=== PATIENT | male | born 1990 | race African-American/Black ===

== ENCOUNTER 2017-01-30 05:57 | Emergency (ER) | payer MEDICAID ==
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
[2017-01-30 10:09] LABS: PROTHROMBIN TIME 12.9 SEC (11.4-15.4)
[2017-01-30 10:11] LABS: APPEARANCE,URINE SLIGHTLY-CLOUDY; BILIRUBIN,URINE NEGATIVE (NEGATIVE); GLUCOSE, URINE NEGATIVE (NEGATIVE); KETONES,URINE TRACE mg/dL (NEGATIVE); LEUKOCYTE ESTERASE,URINE NEGATIVE (NEGATIVE); NITRITE,URINE NEGATIVE (NEGATIVE); PROTEIN,URINE NEGATIVE (NEGATIVE); URINE SPECIFIC GRAVITY 1.029
[2017-01-30 10:13] LABS: ABSOLUTE EOSINOPHILS # (AUTO) 0.1 10^3/uL (0.0-0.6); ABSOLUTE MONOCYTES (AUTO) 0.5 10^3/uL (0.1-1.4); BASOPHILS % (AUTO) 0.5 % (0-2); EOSINOPHILS % (AUTO) 1.3 % (0-6); HEMATOCRIT 43.6 % (37.9-51.0); HEMOGLOBIN 14.8 g/dL (13.5-17.0); HGB HCT DIFFERENCE 0.8; LYMPHOCYTES % (AUTO) 43.5 % (13-45); MEAN CORPUSCULAR HEMOGLOBIN 31.1 pg (27.0-33.4); MEAN CORPUSCULAR HGB CONC 33.9 g/dL (32.0-36.0); MEAN CORPUSCULAR VOLUME 92 fl (80-97); MONOCYTES % (AUTO) 10.3 % (3-13); RED BLOOD COUNT 4.75 10^6/uL (4.35-5.55); RED CELL DISTRIBUTION WIDTH 13.7 % (11.5-14.0); SEGMENTED NEUTROPHILS % (AUTO) 44.4 % (42-78); WHITE BLOOD COUNT 4.6 10^3/uL (4.0-10.5)
[2017-01-30 10:19] LABS: ALANINE AMINOTRANSFERASE 32 U/L (21-72); ALKALINE PHOSPHATASE 90 U/L (38-126); ANION GAP 15 (5-19); ASPARTATE AMINO TRANSFERASE 23 U/L (17-59); BILIRUBIN,DIRECT 0.2 mg/dL (0.0-0.4); BILIRUBIN,TOTAL 0.7 mg/dL (0.2-1.3); BLOOD UREA NITROGEN 12 mg/dL (7-20); CALCIUM 10.3 mg/dL (8.4-10.2); CARBON DIOXIDE 28 mmol/L (22-30); CHLORIDE 101 mmol/L (98-107); GLUCOSE 79 mg/dL (75-110); POTASSIUM 5.4 mmol/L (3.6-5.0); SODIUM 144.3 mmol/L (137-145); TOTAL PROTEIN 7.7 g/dL (6.3-8.2)
[2017-01-30 12:53] VITALS: BP 111/75
== END 2017-01-30 12:53 | disposition home or self-care (01) ==
LOC: ER 05:57
DX: K62.5 Hemorrhage of anus and rectum (principal); R10.31 Right lower quadrant pain; F17.210 Nicotine dependence, cigarettes, uncomplicated
CPT/HCPCS: 36415; 80053; 81001; 82272; 85025; 85610; 99283

== ENCOUNTER 2017-04-26 20:25 | Emergency (ER) | payer MEDICAID ==
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
[2017-04-26 21:20] LABS: ABSOLUTE LYMPHOCYTES (AUTO) 1.2 10^3/uL (0.5-4.7); ABSOLUTE MONOCYTES (AUTO) 0.4 10^3/uL (0.1-1.4); ABSOLUTE NEUT (AUTO) 1.7 10^3/uL (1.7-8.2); BASOPHILS % (AUTO) 0.6 % (0-2); EOSINOPHILS % (AUTO) 1.2 % (0-6); HEMATOCRIT 35.4 % (37.9-51.0); HEMOGLOBIN 11.8 g/dL (13.5-17.0); LYMPHOCYTES % (AUTO) 35.3 % (13-45); MEAN CORPUSCULAR HEMOGLOBIN 31.3 pg (27.0-33.4); MEAN CORPUSCULAR HGB CONC 33.4 g/dL (32.0-36.0); MEAN CORPUSCULAR VOLUME 94 fl (80-97); RED BLOOD COUNT 3.78 10^6/uL (4.35-5.55); RED CELL DISTRIBUTION WIDTH 14.2 % (11.5-14.0); SEGMENTED NEUTROPHILS % (AUTO) 50.9 % (42-78); WHITE BLOOD COUNT 3.4 10^3/uL (4.0-10.5)
[2017-04-26] MEDS ORDERED: ACTIVATED CHARCOAL 25 GM BOTTLE PO ONE (21:30)
[2017-04-26 21:34] LABS: ALANINE AMINOTRANSFERASE 22 U/L (21-72); ALBUMIN 4.6 g/dL (3.5-5.0); ALKALINE PHOSPHATASE 66 U/L (38-126); ANION GAP 10 (5-19); ASPARTATE AMINO TRANSFERASE 16 U/L (17-59); BILIRUBIN,DIRECT 0.3 mg/dL (0.0-0.4); BILIRUBIN,TOTAL 0.5 mg/dL (0.2-1.3); BLOOD UREA NITROGEN 11 mg/dL (7-20); CALCIUM 9.6 mg/dL (8.4-10.2); CARBON DIOXIDE 30 mmol/L (22-30); CHLORIDE 103 mmol/L (98-107); CREATININE RESULT 0.96 mg/dL (0.52-1.25); GLUCOSE 96 mg/dL (75-110); POTASSIUM 3.4 mmol/L (3.6-5.0); TOTAL PROTEIN 7.5 g/dL (6.3-8.2)
[2017-04-26 21:35] LABS: ALCOHOL < 10 mg/dL (NONE DETECTED)
[2017-04-26 21:37] LABS: APPEARANCE,URINE CLEAR; BILIRUBIN,URINE NEGATIVE (NEGATIVE); GLUCOSE, URINE NEGATIVE (NEGATIVE); KETONES,URINE NEGATIVE (NEGATIVE); LEUKOCYTE ESTERASE,URINE NEGATIVE (NEGATIVE); NITRITE,URINE NEGATIVE (NEGATIVE); PROTEIN,URINE NEGATIVE (NEGATIVE); URINE SPECIFIC GRAVITY 1.001; UROBILINOGEN,URINE NEGATIVE mg/dL (<2.0)
[2017-04-26 21:53] LABS: URINE BARBITURATES SCREEN NEGATIVE; URINE METHADONE SCREEN NEGATIVE; URINE OPIATES LOW NEGATIVE; URINE PHENCYCLIDINE SCREEN NEGATIVE
--- NOTE | 2017-04-26 22:44 | EKG REPORT ---
SEVERITY:- ABNORMAL ECG - SINUS ARRHYTHMIA, RATE 58-85 FIRST DEG[address] AV BLOCK : Confirmed by: Tracy Coley 26-Apr-2017 22:43:58
[2017-04-27 13:46] VITALS: BP 114/63
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
== END 2017-04-27 16:30 | disposition home or self-care (01) ==
LOC: ER 20:25
DX: R45.851 Suicidal ideations (principal); F20.9 Schizophrenia, unspecified; F32.9 Major depressive disorder, single episode, unspecified; Z88.0 Allergy status to penicillin
CPT/HCPCS: 93005; 99284; 36415; 80307 ×4; 85025; 80053; 81001; 93010; J3490

== ENCOUNTER 2017-04-27 19:43 | Emergency (ER) | payer MEDICAID ==
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
[2017-04-28 06:38] VITALS: BP 128/64
--- NOTE | 2017-04-28 09:28 | PSYCHOLOGICAL NOTE ---
Psych Note - Psych Note Psych Note: 26-year-old male, schizophrenic, here for suicidal ideation. Patient resting comfortably in his bed this morning. He is pleasant and conversant. Heart and lung exam are unremarkable. Skin is warm and dry. Patient has no complaints and is currently awaiting disposition.
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
== END 2017-04-28 13:40 | disposition home or self-care (01) ==
LOC: ER 19:43
DX: R45.851 Suicidal ideations (principal); F20.9 Schizophrenia, unspecified; Z88.0 Allergy status to penicillin
CPT/HCPCS: 99285

== ENCOUNTER 2017-04-28 22:17 | Emergency (ER) | payer OTHER, MEDICAID ==
[2017-04-28 23:26] LABS: ALANINE AMINOTRANSFERASE 27 U/L (21-72); ALBUMIN 5.2 g/dL (3.5-5.0); ALKALINE PHOSPHATASE 70 U/L (38-126); ANION GAP 12 (5-19); ASPARTATE AMINO TRANSFERASE 18 U/L (17-59); BILIRUBIN,DIRECT 0.3 mg/dL (0.0-0.4); BILIRUBIN,TOTAL 0.7 mg/dL (0.2-1.3); BLOOD UREA NITROGEN 7 mg/dL (7-20); CARBON DIOXIDE 28 mmol/L (22-30); CHLORIDE 101 mmol/L (98-107); CREATININE RESULT 0.94 mg/dL (0.52-1.25); GLUCOSE 85 mg/dL (75-110); SODIUM 141.3 mmol/L (137-145); TOTAL PROTEIN 8.3 g/dL (6.3-8.2)
[2017-04-28 23:27] LABS: ALCOHOL < 10 mg/dL (NONE DETECTED)
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
[2017-04-29] LABS: ABSOLUTE LYMPHOCYTES (AUTO) 2.1 10^3/uL (0.5-4.7); ABSOLUTE MONOCYTES (AUTO) 0.6 10^3/uL (0.1-1.4); ABSOLUTE NEUT (AUTO) 2.6 10^3/uL (1.7-8.2); BASOPHILS % (AUTO) 0.4 % (0-2); EOSINOPHILS % (AUTO) 0.8 % (0-6); HGB HCT DIFFERENCE -0.7; LYMPHOCYTES % (AUTO) 39.3 % (13-45); MEAN CORPUSCULAR HEMOGLOBIN 31.1 pg (27.0-33.4); MEAN CORPUSCULAR HGB CONC 32.8 g/dL (32.0-36.0); MEAN CORPUSCULAR VOLUME 95 fl (80-97); MONOCYTES % (AUTO) 10.6 % (3-13); RED BLOOD COUNT 5.49 10^6/uL (4.35-5.55); RED CELL DISTRIBUTION WIDTH 13.9 % (11.5-14.0); SEGMENTED NEUTROPHILS % (AUTO) 48.9 % (42-78); WHITE BLOOD COUNT 5.3 10^3/uL (4.0-10.5)
[2017-04-29 00:02] LABS: HEMOGLOBIN 17.1 g/dL (13.5-17.0)
[2017-04-29 00:32] LABS: APPEARANCE,URINE CLEAR; BILIRUBIN,URINE NEGATIVE (NEGATIVE); GLUCOSE, URINE NEGATIVE (NEGATIVE); KETONES,URINE NEGATIVE (NEGATIVE); LEUKOCYTE ESTERASE,URINE NEGATIVE (NEGATIVE); NITRITE,URINE NEGATIVE (NEGATIVE); PROTEIN,URINE NEGATIVE (NEGATIVE); URINE SPECIFIC GRAVITY 1.004; UROBILINOGEN,URINE NEGATIVE mg/dL (<2.0)
[2017-04-29 00:45] LABS: URINE BARBITURATES SCREEN NEGATIVE; URINE METHADONE SCREEN NEGATIVE; URINE OPIATES LOW NEGATIVE; URINE PHENCYCLIDINE SCREEN NEGATIVE
--- NOTE | 2017-04-29 09:21 | ER Document Report ---
Doctor's Note Notes: 04/29/17 09:12 Patient was reassessed at 9 AM. Patient states that he is upset with the way that he is being treated. However patient denies any medical concerns at this time. He is currently awaiting further psychiatric evaluation and disposition.
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
[2017-04-29 12:57] VITALS: BP 112/69
--- NOTE | 2017-04-29 13:15 | ER Document Report ---
Doctor's Note Notes: 04/29/17 13:13 Patient reassessed by me at 1 PM. Patient states she is ready to leave. Patient states he never wanted to come to the hospital. He states he is not going to harm himself and does not have any thoughts of harming himself. Patient denies wanting to harm anyone else. There is obviously no psychosis. I had a extensive discussion with Dr. West who feels that the patient is safe for discharge. Patient states he has a safe place to go and that follow- up is in place. At this time I find no evidence the patient is a threat to himself or others and patient is asking to leave. I find no grounds to hold patient against his will.
--- NOTE | 2017-04-30 05:58 | EKG REPORT ---
SEVERITY:- ABNORMAL ECG - SINUS RHYTHM PROBABLE LEFT VENTRICULAR HYPERTROPHY ST ELEV, PROBABLE NORMAL EARLY REPOL PATTERN : Confirmed by: Ebony Singh MD 30-Apr-2017 05:57:34
== END 2017-04-29 13:30 | disposition home or self-care (01) ==
LOC: ER 22:17
DX: F60.2 Antisocial personality disorder (principal); F32.9 Major depressive disorder, single episode, unspecified; F29 Unspecified psychosis not due to a substance or known physiological condition; F17.200 Nicotine dependence, unspecified, uncomplicated
CPT/HCPCS: 36415; 80053; 80307; 81001; 85025; 93005; 93010; 99284

== ENCOUNTER 2017-05-20 03:41 | Inpatient (IN) | payer MEDICAID, OTHER ==
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
[2017-05-20 04:27] LABS: ABSOLUTE LYMPHOCYTES (AUTO) 1.5 10^3/uL (0.5-4.7); ABSOLUTE MONOCYTES (AUTO) 0.3 10^3/uL (0.1-1.4); ABSOLUTE NEUT (AUTO) 1.9 10^3/uL (1.7-8.2); BASOPHILS % (AUTO) 0.8 % (0-2); EOSINOPHILS % (AUTO) 0.9 % (0-6); HEMATOCRIT 43.3 % (37.9-51.0); HEMOGLOBIN 15.1 g/dL (13.5-17.0); LYMPHOCYTES % (AUTO) 40.8 % (13-45); MEAN CORPUSCULAR HEMOGLOBIN 32.5 pg (27.0-33.4); MEAN CORPUSCULAR VOLUME 93 fl (80-97); MONOCYTES % (AUTO) 8.3 % (3-13); RED BLOOD COUNT 4.66 10^6/uL (4.35-5.55); SEGMENTED NEUTROPHILS % (AUTO) 49.2 % (42-78); WHITE BLOOD COUNT 3.8 10^3/uL (4.0-10.5)
[2017-05-20 04:40] LABS: APPEARANCE,URINE CLOUDY; BILIRUBIN,URINE NEGATIVE (NEGATIVE); GLUCOSE, URINE NEGATIVE (NEGATIVE); KETONES,URINE NEGATIVE (NEGATIVE); LEUKOCYTE ESTERASE,URINE NEGATIVE (NEGATIVE); NITRITE,URINE NEGATIVE (NEGATIVE); PROTEIN,URINE 100 mg/dL (NEGATIVE)
[2017-05-20 04:46] LABS: ALANINE AMINOTRANSFERASE 26 U/L (21-72); ALBUMIN 4.7 g/dL (3.5-5.0); ALKALINE PHOSPHATASE 83 U/L (38-126); ANION GAP 12 (5-19); ASPARTATE AMINO TRANSFERASE 19 U/L (17-59); BILIRUBIN,DIRECT 0.3 mg/dL (0.0-0.4); BILIRUBIN,TOTAL 0.6 mg/dL (0.2-1.3); BLOOD UREA NITROGEN 11 mg/dL (7-20); CALCIUM 9.5 mg/dL (8.4-10.2); CARBON DIOXIDE 27 mmol/L (22-30); CHLORIDE 103 mmol/L (98-107); CREATININE RESULT 0.95 mg/dL (0.52-1.25); GLUCOSE 107 mg/dL (75-110); MAGNESIUM 2.1 mg/dL (1.6-2.3); POTASSIUM 4.1 mmol/L (3.6-5.0); SODIUM 141.7 mmol/L (137-145); TOTAL PROTEIN 7.7 g/dL (6.3-8.2)
[2017-05-20 04:51] LABS: ALCOHOL < 10 mg/dL (NONE DETECTED); URINE BARBITURATES SCREEN NEGATIVE; URINE METHADONE SCREEN NEGATIVE; URINE OPIATES LOW NEGATIVE; URINE PHENCYCLIDINE SCREEN NEGATIVE
[2017-05-20] MEDS ORDERED: ACETYLCYSTEINE INJ 6000 MG/30 ML IV ONE ×3 (07:12→07:15)
[2017-05-20] MEDS ORDERED: MAGNESIUM HYDROXIDE SUSP 30 ML UDCUP PO PRN (08:07)
[2017-05-20] MEDS ORDERED: ONDANSETRON HCL INJ/PF 4 MG/2 ML SDV IV PRN (08:07)
[2017-05-20] MEDS ORDERED: NORMAL SALINE 1000 ML 1,000 ML IV ONE (08:12)
[2017-05-20] MEDS ORDERED: ACETYLCYSTEINE IV PRN ×6 (08:13→10:00)
[2017-05-20] MEDS ORDERED: DEXTROSE 5% IV PRN ×6 (08:13→10:00)
[2017-05-20] MEDS ORDERED: WATER IV PRN ×6 (08:13→10:00)
[2017-05-20] MEDS: NORMAL SALINE 1000 ML 1,000 ML IV PRN ×4 (08:31→20:04)
[2017-05-20] MEDS ORDERED: PANTOPRAZOLE SODIUM 40 MG VIAL IV SCH (10:00)
--- NOTE | 2017-05-20 13:09 | EKG REPORT ---
SEVERITY:- ABNORMAL ECG - SINUS RHYTHM PROBABLE LEFT VENTRICULAR HYPERTROPHY ST ELEV, PROBABLE NORMAL EARLY REPOL PATTERN : Confirmed by: Tracy Coley 20-May-2017 13:09:14
--- NOTE | 2017-05-20 16:01 | PDOC H&P ---
History of Present Illness Admission Date/PCP: 05/20/17 08:01 no PCP Patient complains of: I tried to kill myself History of Present Illness: RAVI MONTES DE OCA is a 26 year old male presents to the ED after intentional ingestion of tylenol and benadryl in an effort to kill himself. He tells me he is tired of living and just wants to cross over to the other side. I asked him what he expected to find there and he said he didn't care, it had to be better than this. He has been seen in the ED multiple times since 2012 for suicide ideations, diagnosed with schizophrenia and is supposed to f/u with psych as an outpatient. He has been committed under IVC in the past. He reports taking 25 500mg tylenol and 50 25mg benadryl and proceeds to present to the ED for reasons that aren't clear to me if his real intent was to kill himself or to seek attention. Nevertheless it appears he did indeed ingest enough tylenol for his level to start rising thereby warranting admission to the hospital for acetadote treatment prior to psych eval and likely placement. Past Medical History Psychiatric Medical History: Reports: Bipolar Disorder, Depression, Other - schizophrenia Past Surgical History Past Surgical History: Reports: Orthopedic Surgery Social History Information Source: Patient Smoking Status: Current Every Day Smoker Frequency of Alcohol Use: Social Hx Recreational Drug Use: Yes Drugs: Cocaine, Marijuana - Advance Directive Resuscitation Status: Full Code Family History Family History: Reviewed & Not Pertinent, DM Parental Family History Reviewed: Yes Children Family History Reviewed: Yes Sibling(s) Family History Reviewed.: Yes Medication/Allergy Home Medications: No Home Medications 04/29/17 Allergies/Adverse Reactions: Penicillins Allergy (Verified 04/27/17 20:04) shellfish derived Allergy (Verified 05/20/17 03:44) Review of Systems All systems: reviewed and no additional remarkable complaints except as stated - all systems reviewed, see HPI, remaining systems negative Physical Exam Vital Signs: Temp Pulse Resp BP Pulse Ox 98.5 F 61 19 106/92 H 100 05/20/17 14:00 05/20/17 14:00 05/20/17 15:00 05/20/17 14:35 05/20/17 15:00 Intake & Output 05/19/17 05/20/17 05/21/17 06:59 06:59 06:59 Intake Total 200 Balance 200 Weight 57.7 kg General appearance: PRESENT: well-developed, well-nourished, other - unwilling to participate in his exam so severely limited Head exam: PRESENT: atraumatic, normocephalic Eye exam: PRESENT: EOMI. ABSENT: conjunctival injection, scleral icterus Mouth exam: PRESENT: moist Respiratory exam: PRESENT: clear to auscultation claude. ABSENT: accessory muscle use Cardiovascular exam: PRESENT: RRR. ABSENT: systolic murmur GI/Abdominal exam: PRESENT: normal bowel sounds, soft Musculoskeletal exam: PRESENT: full ROM Neurological exam: PRESENT: alert, awake Psychiatric exam: PRESENT: flat affect, suicidal ideation Skin exam: PRESENT: dry, warm Results Laboratory Results: 05/20/17 03:55 05/20/17 03:55 MCV 93 fl (80-97) 05/20/17 03:55 MCH 32.5 pg (27.0-33.4) 05/20/17 03:55 MCHC 35.0 g/dL (32.0-36.0) 05/20/17 03:55 RDW 14.0 % (11.5-14.0) 05/20/17 03:55 Seg Neutrophils % 49.2 % (42-78) 05/20/17 03:55 Lymphocytes % 40.8 % (13-45) 05/20/17 03:55 Monocytes % 8.3 % (3-13) 05/20/17 03:55 Eosinophils % 0.9 % (0-6) 05/20/17 03:55 Basophils % 0.8 % (0-2) 05/20/17 03:55 Absolute Neutrophils 1.9 10^3/uL (1.7-8.2) 05/20/17 03:55 Absolute Lymphocytes 1.5 10^3/uL (0.5-4.7) 05/20/17 03:55 Absolute Monocytes 0.3 10^3/uL (0.1-1.4) 05/20/17 03:55 Absolute Eosinophils 0.0 10^3/uL (0.0-0.6) 05/20/17 03:55 Absolute Basophils 0.0 10^3/uL (0.0-0.2) 05/20/17 03:55 Chloride 103 mmol/L (98-107) 05/20/17 03:55 Carbon Dioxide 27 mmol/L (22-30) 05/20/17 03:55 Anion Gap 12 (5-19) 05/20/17 03:55 Est GFR ( Amer) > 60 (>60) 05/20/17 03:55 Est GFR (Non-Af Amer) > 60 (>60) 05/20/17 03:55 Glucose 107 mg/dL (75-110) 05/20/17 03:55 Calcium 9.5 mg/dL (8.4-10.2) 05/20/17 03:55 Magnesium 2.1 mg/dL (1.6-2.3) 05/20/17 03:55 Total Bilirubin 0.6 mg/dL (0.2-1.3) 05/20/17 03:55 AST 19 U/L (17-59) 05/20/17 03:55 ALT 26 U/L (21-72) 05/20/17 03:55 Alkaline Phosphatase 83 U/L (38-126) 05/20/17 03:55 Total Protein 7.7 g/dL (6.3-8.2) 05/20/17 03:55 Albumin 4.7 g/dL (3.5-5.0) 05/20/17 03:55 Urine Color KALIE 05/20/17 03:55 Urine Appearance CLOUDY 05/20/17 03:55 Urine pH 9.0 (5.0-9.0) 05/20/17 03:55 Ur Specific [place] 1.030 05/20/17 03:55 Urine Protein 100 mg/dL (NEGATIVE) H 05/20/17 03:55 Urine Glucose (UA) NEGATIVE mg/dL (NEGATIVE) 05/20/17 03:55 Urine Ketones NEGATIVE mg/dL (NEGATIVE) 05/20/17 03:55 Urine Blood NEGATIVE (NEGATIVE) 05/20/17 03:55 Urine Nitrite NEGATIVE (NEGATIVE) 05/20/17 03:55 Ur Leukocyte Esterase NEGATIVE (NEGATIVE) 05/20/17 03:55 Urine WBC (Auto) 0 /HPF 05/20/17 03:55 Urine RBC (Auto) 0 /HPF 05/20/17 03:55 Assessment & Plan - Diagnosis (1) Tylenol overdose Qualifiers: Encounter type: initial encounter Injury intent: intentional self-harm Qualified Code(s): T39.1X2A - Poisoning by 4-Aminophenol derivatives, intentional self-harm, initial encounter Is this a current diagnosis for this admission?: YesPlan: admit to ICU for acetadote IV for 20 hours, re-eval coags, ALT and tylenol level at 18hrs to decide on further treatment. (2) Schizophrenia Qualifiers: Schizophrenia type: undifferentiated schizophrenia Qualified Code(s) : F20.3 - Undifferentiated schizophrenia Is this a current diagnosis for this admission?: YesPlan: antispsychotics prn; await mental health evaluation (3) Suicidal ideation Is this a current diagnosis for this admission?: YesPlan: suicide precautions, mental health eval - Time Time Spent: 50 to 70 Minutes Medications reviewed and adjusted accordingly: Yes - Inpatient Certification Based on my medical assessment, after consideration of the patient's comorbidities, presenting symptoms, or acuity I expect that the services needed warrant INPATIENT care.: Yes I certify that my determination is in accordance with my understanding of Medicare's requirements for reasonable and necessary INPATIENT services [42 CFR 412.3e].: Yes Medical Necessity: Significant Comorbidiites Make Outpatient Treatment Too Risky , Need For IV Fluids, Need For Continuous Telemetry Monitoring, Risk of Complication if Not Cared For in Hospital - Plan Summary Plan Summary: continue IVC awaiting tereza ascencio exam and placment
[2017-05-21] MEDS: NORMAL SALINE 1000 ML 1,000 ML IV PRN ×2 (01:05→06:04)
[2017-05-21 04:04] LABS: ABSOLUTE LYMPHOCYTES (AUTO) 1.5 10^3/uL (0.5-4.7); ABSOLUTE MONOCYTES (AUTO) 0.4 10^3/uL (0.1-1.4); ABSOLUTE NEUT (AUTO) 1.3 10^3/uL (1.7-8.2); BASOPHILS % (AUTO) 0.6 % (0-2); EOSINOPHILS % (AUTO) 0.8 % (0-6); HEMATOCRIT 38.8 % (37.9-51.0); HEMOGLOBIN 13.2 g/dL (13.5-17.0); HGB HCT DIFFERENCE 0.8; LYMPHOCYTES % (AUTO) 46.9 % (13-45); MEAN CORPUSCULAR HEMOGLOBIN 32.1 pg (27.0-33.4); MEAN CORPUSCULAR HGB CONC 34.1 g/dL (32.0-36.0); MEAN CORPUSCULAR VOLUME 94 fl (80-97); MONOCYTES % (AUTO) 11.7 % (3-13); RED BLOOD COUNT 4.11 10^6/uL (4.35-5.55); RED CELL DISTRIBUTION WIDTH 13.5 % (11.5-14.0); WHITE BLOOD COUNT 3.3 10^3/uL (4.0-10.5)
[2017-05-21 04:20] LABS: ALANINE AMINOTRANSFERASE 19 U/L (21-72); ALBUMIN 3.3 g/dL (3.5-5.0); ALKALINE PHOSPHATASE 53 U/L (38-126); ANION GAP 8 (5-19); ASPARTATE AMINO TRANSFERASE 12 U/L (17-59); BILIRUBIN,DIRECT 0.3 mg/dL (0.0-0.4); BILIRUBIN,TOTAL 0.5 mg/dL (0.2-1.3); BLOOD UREA NITROGEN 6 mg/dL (7-20); CALCIUM 8.5 mg/dL (8.4-10.2); CARBON DIOXIDE 23 mmol/L (22-30); CHLORIDE 110 mmol/L (98-107); CREATININE RESULT 0.75 mg/dL (0.52-1.25); GLUCOSE 87 mg/dL (75-110); POTASSIUM 4.1 mmol/L (3.6-5.0); SODIUM 140.9 mmol/L (137-145); TOTAL PROTEIN 5.9 g/dL (6.3-8.2)
--- NOTE | 2017-05-21 08:06 | PDOC PROGRESS REPORT ---
Subjective Progress Note for:: 05/21/17 Subjective:: reason for visit: f/u tylenol OD, suicide ideations/attempt, tylenol toxicity hospital course: RAVI MONTES DE OCA is a 26 year old male presents to the ED after intentional ingestion of tylenol and benadryl in an effort to kill himself. He tells me he is tired of living and just wants to cross over to the other side. I asked him what he expected to find there and he said he didn't care, it had to be better than this. He has been seen in the ED multiple times since 2012 for suicide ideations, diagnosed with schizophrenia and is supposed to f/u with psych as an outpatient. He has been committed under IVC in the past. He reports taking 25 500mg tylenol and 50 25mg benadryl and proceeds to present to the ED for reasons that aren't clear to me if his real intent was to kill himself or to seek attention. Nevertheless it appears he did indeed ingest enough tylenol for his level to start rising thereby warranting admission to the hospital for acetadote treatment prior to psych eval and likely placement. admitted to the ICU on acetadote 20 hr regimen IV which he tolerated without any difficulty. His repeat ALT, tylenol level and INR are all wnl's indicating that it is safe to discontinue in the setting of an acute ingestion and he is medically cleared for mental health evaluation. he expresses no remorse for his actions and makes no effort to recant his story. He remains threat to self. ROS: he denies chest pain, palpitations, abdominal pain, n/v/d, rash, itching, difficulty breathing; all systems reviewed, see above, remaining systems negative. Physical Exam Vital Signs: Temp Pulse Resp BP Pulse Ox 98 F 58 L 16 111/87 H 100 05/21/17 04:00 05/20/17 20:00 05/21/17 07:00 05/21/17 06:50 05/21/17 07:00 Intake & Output 05/20/17 05/21/17 05/22/17 06:59 06:59 06:59 Intake Total 5141 Output Total 3200 850 Balance 1941 -850 Weight 59.8 kg General appearance: PRESENT: no acute distress, well-developed, well-nourished Head exam: PRESENT: atraumatic, normocephalic Eye exam: PRESENT: EOMI. ABSENT: conjunctival injection, scleral icterus Mouth exam: PRESENT: moist, neck supple Neck exam: PRESENT: full ROM. ABSENT: tracheal deviation Respiratory exam: PRESENT: clear to auscultation claude. ABSENT: accessory muscle use Cardiovascular exam: PRESENT: RRR. ABSENT: systolic murmur Pulses: PRESENT: normal radial pulses, normal dorsalis pedis pul GI/Abdominal exam: PRESENT: normal bowel sounds, soft. ABSENT: organolmegaly, tenderness Extremities exam: PRESENT: full ROM. ABSENT: calf tenderness, pedal edema Musculoskeletal exam: PRESENT: ambulatory, full ROM Neurological exam: PRESENT: alert, awake, oriented to person, oriented to place , oriented to time, oriented to situation, CN II-XII grossly intact, motor sensory deficit. ABSENT: aphasic Psychiatric exam: PRESENT: flat affect, suicidal ideation Focused psych exam: ABSENT: pressured speech, psychomotor agitation, restlessness Skin exam: PRESENT: warm - and moist. ABSENT: rash Results Laboratory Results: 05/21/17 03:47 05/21/17 03:47 05/21/17 05/21/17 03:47 03:47 WBC 3.3 L RBC 4.11 L Hgb 13.2 L Hct 38.8 MCV 94 MCH 32.1 MCHC 34.1 RDW 13.5 Plt Count 131 L Seg Neutrophils % 40.0 L Lymphocytes % 46.9 H Monocytes % 11.7 Eosinophils % 0.8 Basophils % 0.6 Absolute Neutrophils 1.3 L Absolute Lymphocytes 1.5 Absolute Monocytes 0.4 Absolute Eosinophils 0.0 Absolute Basophils 0.0 Sodium 140.9 Potassium 4.1 Chloride 110 H Carbon Dioxide 23 Anion Gap 8 BUN 6 L Creatinine 0.75 Est GFR ( Amer) > 60 Est GFR (Non-Af Amer) > 60 Glucose 87 Calcium 8.5 Total Bilirubin 0.5 AST 12 L ALT 19 L Alkaline Phosphatase 53 Total Protein 5.9 L Albumin 3.3 L Assessment & Plan - Diagnosis (1) Tylenol overdose Qualifiers: Encounter type: initial encounter Injury intent: intentional self-harm Qualified Code(s): T39.1X2A - Poisoning by 4-Aminophenol derivatives, intentional self-harm, initial encounter Is this a current diagnosis for this admission?: YesPlan: resolved; no evidence for liver injury and tylenol dose undetectable at 18 hrs after initiation of acetadote. since this is an acute ingestion, he completed the 20hr course of IV regimen and no indication for continued dosing. ok for mental health to evaluate and begin treatment and placement. He remains a risk to self in my estimation, we'll see what the experts have to say. (2) Suicidal ideation Is this a current diagnosis for this admission?: YesPlan: as above; continue suicide watch and involuntary commitment (3) Schizophrenia Qualifiers: Schizophrenia type: undifferentiated schizophrenia Qualified Code(s) : F20.3 - Undifferentiated schizophrenia Is this a current diagnosis for this admission?: YesPlan: antispsychotics prn; await mental health evaluation, not sure what regimen has worked for him in the past - Time Time Spent with patient: 25-34 minutes Medications reviewed and adjusted accordingly: Yes Anticipated discharge: Other - mental health inpatient Within: when bed available
--- NOTE | 2017-05-21 13:30 | PSYCHOLOGICAL NOTE ---
Psych Note - Psych Note Psych Note: Patient is a 26-year-old male who presents with complaint of suicidal ideations. He intentionally overdose on Tylenol Benadryl and Motrin. He says he he took maybe 20 Tylenol. He is really unsure the number. He does not know the dose of Tylenol. He said he took 20-30 Benadryl. He does not know the dose of Benadryl. He said he took 5-10 Motrin. He does not know the dose of Motrin. He will not tell me why he wants to kill himself. He says "I do not want to live". He denies any abdominal pain. Clinician conduct chart review: Initial acetaminophen level came back 0. He initially informed us that he took the Tylenol 2 hours prior to arrival and therefore he should have had some acetaminophen in his bloodstream. I suspected initially that he did not take any. However, his 4 levels under 35. I suspect that the patient probably actually took the acetaminophen right before he got to the ER being that his initial blood work showed no acetaminophen in his bloodstream and that his 4 level is actually more like a 2 hour level. Clinician notes, patient was seen 04/26/2017 for alleged suicide attempt via swallowing bleach and ingesting Tylenol with the intent to :Patient was psychiatrically cleared for discharge. Patient was recommended for rescind IVC and discharged to follow up with [facility]. Patient's lab work did not substantiate patient's reported suicide attempt (negative for Tylenol) and negative symptoms (eg blistered/sore throat). Evaluation 05/20/2017: Patient he was on the phone with mobile crisis when he was "eating the pills." he reported he came to [facility] ED after mobile crisis told him to come in and because his stomach hurt. Patient continued to attempt to engage clinician in philosophical debate on ethical considerations of suicide; "it should be my choice, I want to pass on... there is nothing here for me" Patient was reminded he ambulated into [facility] on his own requesting assistance for taking overdose of Tylenol and Benadryl so patient was choosing life. Patient disclosed he wants to "pass over" with no pain; "I came in because in was in pain, I don't want to be in pain." (Clinician notes patient was talking about his reported abdominal pain.) When clinician stated he will be re-evaluated tomorrow, patient was surprised, "what are you talking about tomorrow?" Patient stated he was unaware he was in ICU and his affect indicated worry. Patient is alert and orientated to person place time and circumstance. Patient endorses suicidal ideation however is unable to provide new information other than what was provided from previous evaluations. Patient denies homicidal ideation. Patient denies auditory and visual hallucinations. Delusions were absent and behaviors are congruent with intact reality based presentation (i.e. organized, linear, rational thinking). Thought content appears to be focused on an unknown with secondary gain supported by the patient 's refusal to provide collateral and patient's inconsistency in reports. Conversational speech is low and very difficult to hear. Eye contact was poor. Intellectual abilities appear to be within average range. Attention and concentration are poor. Insight, judgment, impulse control is fair. Re-evaluation 05/21/2017: Patient disclosed he spoke to the doctor and he thinks he will be able to go home soon. Patient stated he still lives with an "acquaintance." Patient continued to refuse collateral contact. Patient disclosed he "will probably" go back to his "acquaintance" house. Patient was asked why he told the emergency department doctor he had no abdominal pain but told clinician he came into the emergency department because of abdominal pain. Patient stated he was not in pain at first, he came in because he was "sleepy." Clinician asked why patient came in to [facility] ED if he was just sleepy and patient reported "sleepy but not the sleepy type... more sluggish and my head hurt." 311 (F32.9) unspecified depressive disorder polysubstance abuse; Cocaine and THC Impression/Plan: Patient is recommended for rescind of IVC and is considered psychiatrically cleared for discharge. Patient does not meet IVC criteria per [place] GS 122C. Patient is a poor historian and his conflicting reports and behavior indicated no intent for suicide. Patient has had multiple visits to [facility] ED reporting Tylenol overdose, only to have the patient recant and report he was only "thinking about it" when lab work did not substantiate his original allegations. While patient did take Tylenol this event, patient again provided conflicting reports on when he took the Tylenol and what motivated him walk to [facility] ED for treatment. Thought content appears to be focused on an unknown with secondary gain supported by the patient's refusal to provide collateral and patient's inconsistency in reports. Dr. West was consulted on the care and management of this patient.
--- NOTE | 2017-05-21 13:47 | PDOC DISCHARGE SUMMARY ---
General - Admit/Disc Date/PCP Admission Date/Primary Care Provider: 05/20/17 08:01 Discharge Date: 05/21/17 - Discharge Diagnosis (1) Tylenol overdose Is this a current diagnosis for this admission?: YesSummary: s/p 20 hr regimen of acetadote without complication of liver injury (2) Suicidal ideation Is this a current diagnosis for this admission?: YesSummary: seen by mental health and deemed to be acting out, not a threat to self or others and safe for d/c home. apparently he has a hx of similar behaviors with a pattern of acting out, attention seeking. (3) Schizophrenia Is this a current diagnosis for this admission?: YesSummary: refuses referrals and treatment - Additional Information Resuscitation Status: Full Code Discharge Diet: As Tolerated Discharge Activity: Activity As Tolerated Home Medications: No Home Medications 04/29/17 History of Present Illness Patient complains of: I tried to kill myself History of Present Illness: RAVI MONTES DE OCA is a 26 year old male presents to the ED after intentional ingestion of tylenol and benadryl in an effort to kill himself. He tells me he is tired of living and just wants to cross over to the other side. Hospital Course Hospital Course: I asked him what he expected to find there and he said he didn't care, it had to be better than this. He has been seen in the ED multiple times since 2013 for suicide ideations, diagnosed with schizophrenia and is supposed to f/u with psych as an outpatient. He has been committed under IVC in the past. He reports taking 25 500mg tylenol and 50 25mg benadryl and proceeds to present to the ED for reasons that aren't clear to me if his real intent was to kill himself or to seek attention. Nevertheless it appears he did indeed ingest enough tylenol for his level to start rising thereby warranting admission to the hospital for acetadote treatment prior to psych eval and likely placement. admitted to the ICU on acetadote 20 hr regimen IV which he tolerated without any difficulty. His repeat ALT, tylenol level and INR are all wnl's indicating that it is safe to discontinue in the setting of an acute ingestion and he is medically cleared for mental health evaluation. he was evaluated yet again by [facility], with whom he has a long history of non-compliance and repeat episodes of attention seeking behavior with suicide attempts, he will often present to the ED with threats to harm self and if he ingests something it is usually in the parking lot or waiting room where he know he will get immediate attention, medical and otherwise. They do not feel he is a threat to self or others and he is stable to d/c home. I have no medical reason to keep him at this point and so will d/c him home. Physical Exam Vital Signs: Temp Pulse Resp BP Pulse Ox 97.0 F 45 L 14 116/75 100 05/21/17 10:13 05/21/17 10:13 05/21/17 10:13 05/21/17 10:13 05/21/17 10:13 Intake & Output 05/20/17 05/21/17 05/22/17 06:59 06:59 06:59 Intake Total 5141 Output Total 3200 850 Balance 1941 -850 Weight 59.8 kg 57.4 kg General appearance: PRESENT: no acute distress, well-developed, well-nourished Head exam: PRESENT: atraumatic, normocephalic Eye exam: PRESENT: EOMI. ABSENT: scleral icterus Respiratory exam: PRESENT: clear to auscultation claude. ABSENT: accessory muscle use Neurological exam: PRESENT: alert, awake, oriented to person, oriented to place , oriented to time Results Laboratory Results: 05/21/17 03:47 05/21/17 03:47 05/21/17 05/21/17 03:47 03:47 WBC 3.3 L RBC 4.11 L Hgb 13.2 L Hct 38.8 MCV 94 MCH 32.1 MCHC 34.1 RDW 13.5 Plt Count 131 L Seg Neutrophils % 40.0 L Lymphocytes % 46.9 H Monocytes % 11.7 Eosinophils % 0.8 Basophils % 0.6 Absolute Neutrophils 1.3 L Absolute Lymphocytes 1.5 Absolute Monocytes 0.4 Absolute Eosinophils 0.0 Absolute Basophils 0.0 Sodium 140.9 Potassium 4.1 Chloride 110 H Carbon Dioxide 23 Anion Gap 8 BUN 6 L Creatinine 0.75 Est GFR ( Amer) > 60 Est GFR (Non-Af Amer) > 60 Glucose 87 Calcium 8.5 Total Bilirubin 0.5 AST 12 L ALT 19 L Alkaline Phosphatase 53 Total Protein 5.9 L Albumin 3.3 L Qualifiers PATEINT BEING DISCHARGED WITH ANY OF THE FOLLOWING DIAGNOSIS?: No VTE patient discharged on overlapping Therapy?: No Reason(s) for not prescribing Overlap Therapy:: Not indicated Plan Discharge Plan: d/c home Time Spent: Greater than 30 Minutes
[2017-05-21 14:44] VITALS: BP 124/71
== END 2017-05-21 16:00 | disposition home or self-care (01) | DRG 918 ==
LOC: ER 03:41 → EH 07:45 → UNDOADMIN 07:45 → EH 08:01 → ICU 10:43 → 4S 05-21 10:04
PROVIDERS: ADMIT Family Medicine; ATTEND Family Medicine
DX: T39.1X2A Poisoning by 4-Aminophenol derivatives, intentional self-harm, initial encounter (principal); Z65.8 Other specified problems related to psychosocial circumstances; T45.0X2A Poisoning by antiallergic and antiemetic drugs, intentional self-harm, initial encounter; Y92.009 Unspecified place in unspecified non-institutional (private) residence as the place of occurrence of the external cause; F20.3 Undifferentiated schizophrenia; F31.9 Bipolar disorder, unspecified; F17.210 Nicotine dependence, cigarettes, uncomplicated; Z91.19 Patient's noncompliance with other medical treatment and regimen; Z91.5 Personal history of self-harm; Z83.3 Family history of diabetes mellitus; Z88.0 Allergy status to penicillin; Z91.013 Allergy to seafood
CPT/HCPCS: 36415; 80053; 80307; 81001; 82962; 83735; 85025; 85610; 93005; 93010; 96360; 99291; J0132; J7030; J7060; S0164

== ENCOUNTER 2017-07-09 03:48 | Emergency (ER) | payer MEDICAID ==
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
[2017-07-09 05:34] LABS: ALANINE AMINOTRANSFERASE 36 U/L (21-72); ALBUMIN 3.7 g/dL (3.5-5.0); ALKALINE PHOSPHATASE 81 U/L (38-126); ANION GAP 7 (5-19); ASPARTATE AMINO TRANSFERASE 88 U/L (17-59); BILIRUBIN,DIRECT 0.3 mg/dL (0.0-0.4); BILIRUBIN,TOTAL 0.3 mg/dL (0.2-1.3); BLOOD UREA NITROGEN 9 mg/dL (7-20); CALCIUM 9.3 mg/dL (8.4-10.2); CARBON DIOXIDE 29 mmol/L (22-30); CHLORIDE 105 mmol/L (98-107); CREATININE RESULT 0.88 mg/dL (0.52-1.25); GLUCOSE 114 mg/dL (75-110); POTASSIUM 3.7 mmol/L (3.6-5.0); SODIUM 141.3 mmol/L (137-145); TOTAL PROTEIN 6.1 g/dL (6.3-8.2)
[2017-07-09 05:36] LABS: ALCOHOL < 10 mg/dL (NONE DETECTED)
[2017-07-09 05:57] LABS: ABSOLUTE EOSINOPHILS # (AUTO) 0.1 10^3/uL (0.0-0.6); ABSOLUTE LYMPHOCYTES (AUTO) 1.9 10^3/uL (0.5-4.7); ABSOLUTE MONOCYTES (AUTO) 0.4 10^3/uL (0.1-1.4); BASOPHILS % (AUTO) 0.6 % (0-2); EOSINOPHILS % (AUTO) 1.6 % (0-6); HEMATOCRIT 38.2 % (37.9-51.0); HEMOGLOBIN 13.4 g/dL (13.5-17.0); LYMPHOCYTES % (AUTO) 42.6 % (13-45); MEAN CORPUSCULAR HEMOGLOBIN 32.5 pg (27.0-33.4); MEAN CORPUSCULAR VOLUME 93 fl (80-97); MONOCYTES % (AUTO) 9.1 % (3-13); RED BLOOD COUNT 4.11 10^6/uL (4.35-5.55); RED CELL DISTRIBUTION WIDTH 13.3 % (11.5-14.0); SEGMENTED NEUTROPHILS % (AUTO) 46.1 % (42-78); WHITE BLOOD COUNT 4.4 10^3/uL (4.0-10.5)
--- NOTE | 2017-07-09 09:47 | EKG REPORT ---
SEVERITY:- ABNORMAL ECG - SINUS RHYTHM FIRST DEGREE AV BLOCK ST ELEVATION SUGGESTS PERICARDITIS VS EARLY REPOL CHANGES VS LVH RELATED VS ISCHEMIA : Confirmed by: Tracy Coley 09-Jul-2017 09:46:53
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
--- NOTE | 2017-07-09 10:07 | ER Document Report ---
Doctor's Note Notes: 07/09/17 10:05 Patient resting comfortably on stretcher, easily awakens, states "I am ready to go home", he admits to passive suicidal ideation but has no plan to hurt himself , has a history of this on multiple previous visits, patient is currently connected with [facility], states he has an appointment on the fifth for follow-up, patient reports he feels safe to be discharged home today, chart was reviewed including presentation, vital signs and labs, patient has been evaluated by mental health who recommends to resend IVC and discharge patient with instructions for follow-up Discharge - Discharge Clinical Impression: Depressive disorder, Antisocial personality disorder, Polysubstance (excluding opioids) dependence, Suicidal ideation Condition: Stable Disposition: HOME, SELF-CARE Additional Instructions: DEPRESSION: Your evaluation reveals that you have mental depression. While symptoms may be vague, they often include disturbance of sleep, fatigue, loss of appetite , and general loss of interest in life. While depression may be a side effect of drugs, or a reaction to a major change in your life, many cases have no known cause. If depression is acute, and related to a major loss in your life, you can expect it to clear completely with time. If you have been depressed a long time , are prone to repeated bouts of depression or low mood, or have been thinking of suicide, get help. Depression can be treated with anti-depressant medication and counselling. Long-term depression will often take a few weeks to clear, even with appropriate medication. Follow-up care is important. SUICIDAL IDEATION: Suicidal ideation is a common medical term for thoughts about suicide, which may be as detailed as a formulated plan, without the suicidal act itself. Although most people who undergo suicidal ideation do not commit suicide, some go on to make suicide attempts. The range of suicidal ideation varies greatly from fleeting to detailed planning, role playing, and unsuccessful attempts. While thoughts about suicide are common, most people do not carry out serious actions to commit suicide. Based upon your evaluation and discussion with you, we do not believe you are currently at risk to act upon your thoughts of suicide. You have agreed to return to the Emergency Department, at any time , if you feel inclined to act upon your suicidal thoughts. FOLLOW-UP CARE: You are recommended to follow up with [facility] at for previously scheduled appointment on 07/15/2017. If you experience worsening or a significant change in your symptoms, notify the physician immediately or return to the Emergency Department at any time for re-evaluation. Referrals: [facility] [Outside] - 07/15/17 MIGUEL MAGANA MD [Primary Care Provider] - Follow up as needed
[2017-07-09 11:19] VITALS: BP 102/64
== END 2017-07-09 11:31 | disposition home or self-care (01) ==
LOC: ER 03:48
DX: F32.9 Major depressive disorder, single episode, unspecified (principal); F60.2 Antisocial personality disorder; F19.20 Other psychoactive substance dependence, uncomplicated; R45.851 Suicidal ideations; R11.0 Nausea; Z72.0 Tobacco use; Z88.0 Allergy status to penicillin; Z91.013 Allergy to seafood
CPT/HCPCS: 36415; 80053; 80307; 85025; 93005; 93010; 99284

== ENCOUNTER 2017-07-21 02:46 | Emergency (ER) | payer OTHER, MEDICAID ==
[2017-07-21 03:07] VITALS: BP 107/59
[2017-07-21] MEDS ORDERED: IBUPROFEN 600 MG TABLET PO ONE (04:11)
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
== END 2017-07-21 04:54 | disposition home or self-care (01) ==
LOC: ER 02:46
DX: M79.605 Pain in left leg (principal); F17.200 Nicotine dependence, unspecified, uncomplicated; V87.7XXA Person injured in collision between other specified motor vehicles (traffic), initial encounter
CPT/HCPCS: 99283

== ENCOUNTER 2018-03-29 16:53 | Emergency (ER) | payer MEDICAID ==
[2018-03-29] MEDS ORDERED: DIPHENHYDRAMINE HCL 50 MG/ML VIAL IV ONE (18:36)
[2018-03-29] MEDS ORDERED: HALOPERIDOL LACTATE INJ 5 MG/1 ML VIAL IV ONE (18:36)
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
[2018-03-29 18:50] LABS: ABSOLUTE LYMPHOCYTES (AUTO) 1.9 10^3/uL (0.5-4.7); ABSOLUTE MONOCYTES (AUTO) 0.8 10^3/uL (0.1-1.4); BASOPHILS % (AUTO) 0.6 % (0-2); EOSINOPHILS % (AUTO) 0.3 % (0-6); HEMATOCRIT 44.9 % (37.9-51.0); HEMOGLOBIN 15.4 g/dL (13.5-17.0); LYMPHOCYTES % (AUTO) 33.1 % (13-45); MEAN CORPUSCULAR HEMOGLOBIN 31.1 pg (27.0-33.4); MEAN CORPUSCULAR HGB CONC 34.3 g/dL (32.0-36.0); MEAN CORPUSCULAR VOLUME 91 fl (80-97); MONOCYTES % (AUTO) 13.8 % (3-13); PLATELET COUNT 208 10^3/uL (150-450); RED BLOOD COUNT 4.96 10^6/uL (4.35-5.55); RED CELL DISTRIBUTION WIDTH 14.2 % (11.5-14.0); SEGMENTED NEUTROPHILS % (AUTO) 52.2 % (42-78); TOTAL CELLS COUNTED % (AUTO) 100 %; WHITE BLOOD COUNT 5.8 10^3/uL (4.0-10.5)
[2018-03-29 18:55] LABS: ALANINE AMINOTRANSFERASE 37 U/L (21-72); ALBUMIN 5.5 g/dL (3.5-5.0); ALKALINE PHOSPHATASE 95 U/L (38-126); ANION GAP 17 (5-19); ASPARTATE AMINO TRANSFERASE 49 U/L (17-59); BILIRUBIN,DIRECT 0.5 mg/dL (0.0-0.4); BILIRUBIN,TOTAL 1.1 mg/dL (0.2-1.3); BLOOD UREA NITROGEN 18 mg/dL (7-20); CALCIUM 10.9 mg/dL (8.4-10.2); CARBON DIOXIDE 27 mmol/L (22-30); CHLORIDE 102 mmol/L (98-107); CREATINE KINASE 1222 U/L (55-170); GLUCOSE 96 mg/dL (75-110); POTASSIUM 3.8 mmol/L (3.6-5.0); SODIUM 146.3 mmol/L (137-145); TOTAL PROTEIN 8.7 g/dL (6.3-8.2)
[2018-03-29 18:56] LABS: ACETAMINOPHEN < 10 ug/mL (10-30); ALCOHOL < 10 mg/dL (NONE DETECTED); SALICYLATE < 1.0 mg/dL (2.0-20.0)
[2018-03-29 19:38] LABS: APPEARANCE,URINE SLIGHTLY-CLOUDY; BILIRUBIN,URINE SMALL (NEGATIVE); COLOR,URINE AMBER; GLUCOSE, URINE NEGATIVE (NEGATIVE); KETONES,URINE TRACE mg/dL (NEGATIVE); LEUKOCYTE ESTERASE,URINE TRACE (NEGATIVE); NITRITE,URINE NEGATIVE (NEGATIVE); PROTEIN,URINE 100 mg/dL (NEGATIVE); URINE SPECIFIC GRAVITY 1.028
[2018-03-29 19:51] LABS: URINE BARBITURATES SCREEN NEGATIVE; URINE BENZODIAZEPINES SCREEN NEGATIVE; URINE COCAINE SCREEN UNCONFIRMED POSITIVE; URINE MARIJUANA (THC) SCREEN UNCONFIRMED POSITIVE; URINE METHADONE SCREEN NEGATIVE; URINE PHENCYCLIDINE SCREEN NEGATIVE
[2018-03-29] MEDS ORDERED: NORMAL SALINE 1000 ML 1,000 ML IV ONE ×2 (20:06→21:47)
[2018-03-29 21:02] VITALS: BP 102/72
--- NOTE | 2018-03-29 22:44 | EKG REPORT ---
SEVERITY:- ABNORMAL ECG - SINUS TACHYCARDIA BIATRIAL ABNORMALITIES LEFT VENTRICULAR HYPERTROPHY ST ELEV, PROBABLE NORMAL EARLY REPOL PATTERN : Confirmed by: Tracy Coley 29-Mar-2018 22:43:49
[2018-03-29] MEDS ORDERED: DEXTROSE 5%-LACTATED RINGERS 1,000 ML IV ONE (23:17)
[2018-03-30] MEDS ORDERED: HALOPERIDOL LACTATE INJ 5 MG/1 ML VIAL IV ONE (00:04)
[2018-03-30] MEDS ORDERED: NORMAL SALINE 1000 ML 1,000 ML IV ONE (02:57)
== END 2018-03-30 04:55 | disposition home or self-care (01) ==
LOC: ER 16:53
DX: M62.82 Rhabdomyolysis (principal); F20.9 Schizophrenia, unspecified; F20.0 Paranoid schizophrenia; T67.5XXA Heat exhaustion, unspecified, initial encounter; X30.XXXA Exposure to excessive natural heat, initial encounter; Y99.9 Unspecified external cause status; F17.210 Nicotine dependence, cigarettes, uncomplicated; Z88.0 Allergy status to penicillin; Z91.013 Allergy to seafood
CPT/HCPCS: 93005; 96376; 99284; 96361; 96374; 96375; 36415; 80307 ×4; 82550; 85025; 80053; 81001; 93010; J1200; J1630 ×2; J7030

== ENCOUNTER 2018-05-31 17:14 | Emergency (ER) | payer MEDICAID ==
[2018-05-31 18:56] LABS: APPEARANCE,URINE SLIGHTLY-CLOUDY; BILIRUBIN,URINE NEGATIVE (NEGATIVE); COLOR,URINE AMBER; GLUCOSE, URINE NEGATIVE (NEGATIVE); KETONES,URINE 20 mg/dL (NEGATIVE); LEUKOCYTE ESTERASE,URINE NEGATIVE (NEGATIVE); NITRITE,URINE NEGATIVE (NEGATIVE); PROTEIN,URINE 30 mg/dL (NEGATIVE); URINE SPECIFIC GRAVITY 1.029
[2018-05-31] MEDS ORDERED: AZITHROMYCIN 1 GM SUSP PACKET PO ONE (19:15)
[2018-05-31] MEDS ORDERED: LIDOCAINE 1% INJ-PF (10 MG/ML) 30 ML SDV INFIL ONE (19:15)
[2018-05-31] MEDS ORDERED: CEFTRIAXONE INJ 250 MG VIAL IM ONE (19:15)
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
[2018-05-31 20:24] LABS: CHLAM PCR NOT DETECTED (NOT DETECT); GON PCR NOT DETECTED (NOT DETECT)
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
--- NOTE | 2018-05-31 20:55 | RADIOLOGY REPORT (SQ) ---
EXAM DESCRIPTION: U/S SCROTUM W/DOPPLER COMPLETED DATE/TIME: 05/31/2018 8:36 pm REASON FOR STUDY: 32, right testicular pain COMPARISON: 06/07/2014 TECHNIQUE: Static and realtime tate scale imaging of the scrotum and testes. Selected color Doppler and spectral images recorded to document blood flow. LIMITATIONS: None. FINDINGS: RIGHT: TESTICLE: Normal size, 3 x 2 x 3.2 cm. Normal echotexture. Normal blood flow. No mass. EPIDIDYMIS: 14 x 10 x 10 mm. HYDROCELE OR VARICOCELE: No. HERNIA OR EXTRA-TESTICULAR MASS: No. OTHER: No other significant finding. LEFT: TESTICLE: Normal size, 2.3 x 1.5 x 2 cm. Normal echotexture. Normal blood flow. No mass. EPIDIDYMIS: 8 x 8 x 7 mm. HYDROCELE OR VARICOCELE: No. HERNIA OR EXTRA-TESTICULAR MASS: No. OTHER: No other significant finding. IMPRESSION: The study is essentially normal. The right epididymis is more prominent than the left. Is there clinical evidence of epididymitis? TECHNICAL DOCUMENTATION: JOB ID: [id number] [employer]- All Rights Reserved Reading location - IP/workstation name: [email or web address]
[2018-05-31] MEDS ORDERED: NORMAL SALINE 1000 ML 1,000 ML IV ONE (21:04)
[2018-05-31] MEDS ORDERED: NORMAL SALINE 1000 ML 1,000 ML IV PRN (21:05)
[2018-05-31 21:09] VITALS: BP 125/85
[2018-05-31 22:19] LABS: URINE BARBITURATES SCREEN NEGATIVE; URINE BENZODIAZEPINES SCREEN NEGATIVE; URINE COCAINE SCREEN NEGATIVE; URINE MARIJUANA (THC) SCREEN UNCONFIRMED POSITIVE; URINE METHADONE SCREEN NEGATIVE; URINE PHENCYCLIDINE SCREEN NEGATIVE
== END 2018-05-31 21:10 | disposition left against medical advice (07) ==
LOC: ER 17:14
DX: N50.811 Right testicular pain (principal); E86.0 Dehydration; R36.9 Urethral discharge, unspecified; N50.89 Other specified disorders of the male genital organs; F17.210 Nicotine dependence, cigarettes, uncomplicated
CPT/HCPCS: 99406; 99284; 96372; 87086; 81001; 80307; 87491; 87591; 76870; 93976; J3490; Q0144; J0696

== ENCOUNTER 2018-07-20 01:08 | Emergency (ER) | payer MEDICAID ==
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
[2018-07-20 02:34] LABS: ABSOLUTE LYMPHOCYTES (AUTO) 2.1 10^3/uL (0.5-4.7); ABSOLUTE MONOCYTES (AUTO) 0.4 10^3/uL (0.1-1.4); ABSOLUTE NEUT (AUTO) 1.9 10^3/uL (1.7-8.2); BASOPHILS % (AUTO) 0.6 % (0-2); EOSINOPHILS % (AUTO) 1.1 % (0-6); HEMATOCRIT 36.2 % (37.9-51.0); HEMOGLOBIN 12.5 g/dL (13.5-17.0); LYMPHOCYTES % (AUTO) 46.8 % (13-45); MEAN CORPUSCULAR HEMOGLOBIN 31.4 pg (27.0-33.4); MEAN CORPUSCULAR HGB CONC 34.6 g/dL (32.0-36.0); MEAN CORPUSCULAR VOLUME 91 fl (80-97); MONOCYTES % (AUTO) 9.5 % (3-13); PLATELET COUNT 163 10^3/uL (150-450); RED BLOOD COUNT 3.98 10^6/uL (4.35-5.55); RED CELL DISTRIBUTION WIDTH 13.8 % (11.5-14.0); TOTAL CELLS COUNTED % (AUTO) 100 %; WHITE BLOOD COUNT 4.6 10^3/uL (4.0-10.5)
[2018-07-20 02:47] LABS: ALANINE AMINOTRANSFERASE 30 U/L (21-72); ALBUMIN 3.7 g/dL (3.5-5.0); ALKALINE PHOSPHATASE 91 U/L (38-126); ANION GAP 6 (5-19); ASPARTATE AMINO TRANSFERASE 15 U/L (17-59); BILIRUBIN,DIRECT 0.1 mg/dL (0.0-0.4); BILIRUBIN,TOTAL 0.2 mg/dL (0.2-1.3); BLOOD UREA NITROGEN 9 mg/dL (7-20); CARBON DIOXIDE 28 mmol/L (22-30); CHLORIDE 109 mmol/L (98-107); GLUCOSE 90 mg/dL (75-110); POTASSIUM 3.7 mmol/L (3.6-5.0); SODIUM 143.4 mmol/L (137-145); TOTAL PROTEIN 6.2 g/dL (6.3-8.2)
[2018-07-20 02:49] LABS: ACETAMINOPHEN < 10 ug/mL (10-30); ALCOHOL < 10 mg/dL (NONE DETECTED); SALICYLATE < 1.0 mg/dL (2.0-20.0)
--- NOTE | 2018-07-20 09:19 | ER Document Report ---
Doctor's Note Notes: Patient seen and examined. Vital signs reviewed. Patient is a 27-year-old male with a long history of depression, low self-esteem, that reportedly states he took some pills, did does not remember the medications that he thinks he took. He states that he denies having any pain at this time, I discussed his case with the behavioral health team, who is very familiar with the patient, and they report that this is similar to his prior complaints, and that he is stable from his baseline, a call was made to a family member, that he does live with, to follow-up with them. Action plan was made with the patient, and he was agreeable to this. Patient is cleared to be discharged from a medical standpoint.
[2018-07-20 09:34] VITALS: BP 110/63
--- NOTE | 2018-07-20 10:13 | EKG REPORT ---
SEVERITY:- ABNORMAL ECG - SINUS RHYTHM FIRST DEGREE AV BLOCK : Confirmed by: Ebony Singh MD 20-Jul-2018 10:11:42
[2018-07-20 12:25] LABS: APPEARANCE,URINE HAZY; BILIRUBIN,URINE MODERATE (NEGATIVE); GLUCOSE, URINE NEGATIVE (NEGATIVE); KETONES,URINE NEGATIVE (NEGATIVE); LEUKOCYTE ESTERASE,URINE NEGATIVE (NEGATIVE); NITRITE,URINE NEGATIVE (NEGATIVE); PROTEIN,URINE 30 mg/dL (NEGATIVE)
[2018-07-20 12:26] LABS: AMORPHOUS SEDIMENT,URINE TRACE /HPF; CALCIUM OXALATE CRYSTALS,URINE FEW /HPF
[2018-07-20 12:31] LABS: COLOR,URINE YELLOW; URINE SPECIFIC GRAVITY 1.035
[2018-07-20 12:45] LABS: URINE BARBITURATES SCREEN NEGATIVE; URINE BENZODIAZEPINES SCREEN NEGATIVE; URINE COCAINE SCREEN NEGATIVE; URINE MARIJUANA (THC) SCREEN UNCONFIRMED POSITIVE; URINE METHADONE SCREEN NEGATIVE; URINE PHENCYCLIDINE SCREEN NEGATIVE
--- NOTE | 2018-07-20 13:41 | PSYCHOLOGICAL NOTE ---
Psych Note - Psych Note Psych Note: Reason For Consult: suicidal ideation Consent permissions: sister, enrique, Patient reports that he has been "chasing ghosts... Chasing shadows." He reports that the voices are getting louder and louder and that he hears them "all the time... They are always there... Calling my name... Trying to get me to do stuff." He reports taking the medication to just get rid of the voices. He denies having outpatient mental health services stating it has been a while since he is gone. He confirms he has been off his medications for "a couple months" also. He is unable to disclose what medications he is been on. Patient denies substance abuse. When clinician attempted to discuss the possibility that the patient's "hallucinations" were possibly a symptom of his depression and self-esteem patient reports "they are not my thoughts." Patient was asked about his living arrangements which she replies he was living on [facility] however denies living there anymore stating that it is haunted there. Patient reports that while he was living in the house is when the hallucinations come out. Patient confirms he is currently unemployed. Clinician attempted to contact patient's sister multiple times and was unable to leave a message. Clinician attempted to contact patient's person to notify listed in chart, Jean Jorge, number is incorrect. Patient is alert and orientated to person place time and circumstance. mood is flat with flat affect. Patient endorses passive suicidal ideation however is unable to provide new information other than what was provided from multiple previous evaluations. Patient has history of suicidal gestures. Patient denies homicidal ideation. Patient endorses auditory and visual hallucinations ; however, the patient's reports is not consistent with known magnifications of hallucinations (ie. hearing them all the time, nonstop). Delusions were absent and behaviors are congruent with intact reality based presentation (i.e. organized, linear, rational thinking). Thought content appears to be focused on an unknown with secondary gain. Conversational speech is low and very difficult to hear. Eye contact was poor. Intellectual abilities appear to be within average range. Attention and concentration are poor. Insight, judgment , impulse control is fair. No medication recommendations at this time 301.7 (F60.2) Antisocial Personality Disorder per history 311 (F32.9) unspecified depressive disorder per history polysubstance abuse; Cocaine and THC per history Impression/Plan: Patient is cleared from acute psychiatric services. Patient does not meet IVC criteria [place] GS 122C. This patient is well known to this clinician and department. Patient has chronic passive suicidal ideation with a history of suicidal gestures. Delusions were absent and behaviors are congruent with intact reality based presentation (i.e. organized, linear, rational thinking). The patient has a long history of non-compliance and repeat episodes of attention seeking behavior with suicidal gestures; he will often present to the ED with threats to harm self and if he ingests something it is usually in the parking lot or waiting room where he know he will get immediate attention, medical and otherwise. Patient reports hallucinations that are not congruent with known manifestations of hallucinations, rather it appears to be internal thoughts that are part of the symptomology of his depression and low self-esteem. Patient is a poor historian and his conflicting reports and behavior indicated no intent for suicide. Patient has had multiple past visits to [facility] ED reporting overdose, only to have the patient recant and report he was only "thinking about it" when lab work did not substantiate his original allegations. Thought content appears to be focused on an unknown with secondary gain supported by the patient's history of his refusal to provide collateral or working contact numbers or any other psychosocial information (who he lives with , what he does in a day ect), patient's inconsistency in reports, patient's refusal to follow with mental health recommendations. Patient is recommended to follow up with outpatient mental health and substance abuse services through [facility]. Dr. West was consulted on the care and management of this patient; attending physician is in agreement with recommendations and disposition.
== END 2018-07-20 15:34 | disposition home or self-care (01) ==
LOC: ER 01:08
DX: R45.851 Suicidal ideations (principal); F60.2 Antisocial personality disorder; F32.9 Major depressive disorder, single episode, unspecified; Z88.0 Allergy status to penicillin; Z91.013 Allergy to seafood
CPT/HCPCS: 36415; 80053; 80307; 81001; 85025; 93005; 93010; 99285

== ENCOUNTER 2018-08-24 23:37 | Emergency (ER) | payer MEDICAID ==
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
[2018-08-25 00:10] VITALS: BP 115/66
== END 2018-08-25 00:20 | disposition left against medical advice (07) ==
LOC: ER 23:37
DX: T39.1X2A Poisoning by 4-Aminophenol derivatives, intentional self-harm, initial encounter (principal); F31.9 Bipolar disorder, unspecified; F20.9 Schizophrenia, unspecified; Z88.0 Allergy status to penicillin; Z91.013 Allergy to seafood; F17.210 Nicotine dependence, cigarettes, uncomplicated; Z53.20 Procedure and treatment not carried out because of patient's decision for unspecified reasons
CPT/HCPCS: 99281

== ENCOUNTER 2018-08-25 03:50 | Emergency (ER) | payer MEDICAID ==
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
[2018-08-25 04:14] LABS: ABSOLUTE LYMPHOCYTES (AUTO) 2.8 10^3/uL (0.5-4.7); ABSOLUTE MONOCYTES (AUTO) 1.1 10^3/uL (0.1-1.4); ABSOLUTE NEUT (AUTO) 4.5 10^3/uL (1.7-8.2); BASOPHILS % (AUTO) 0.5 % (0-2); EOSINOPHILS % (AUTO) 0.5 % (0-6); HEMATOCRIT 39.6 % (37.9-51.0); HEMOGLOBIN 13.7 g/dL (13.5-17.0); LYMPHOCYTES % (AUTO) 33.2 % (13-45); MEAN CORPUSCULAR HEMOGLOBIN 31.1 pg (27.0-33.4); MEAN CORPUSCULAR HGB CONC 34.7 g/dL (32.0-36.0); MEAN CORPUSCULAR VOLUME 90 fl (80-97); MONOCYTES % (AUTO) 12.4 % (3-13); PLATELET COUNT 167 10^3/uL (150-450); RED BLOOD COUNT 4.42 10^6/uL (4.35-5.55); RED CELL DISTRIBUTION WIDTH 13.6 % (11.5-14.0); SEGMENTED NEUTROPHILS % (AUTO) 53.4 % (42-78); TOTAL CELLS COUNTED % (AUTO) 100 %; WHITE BLOOD COUNT 8.5 10^3/uL (4.0-10.5)
[2018-08-25 04:29] LABS: ALANINE AMINOTRANSFERASE 47 U/L (21-72); ALBUMIN 4.9 g/dL (3.5-5.0); ALCOHOL 27 mg/dL (NONE DETECTED); ALKALINE PHOSPHATASE 104 U/L (38-126); ANION GAP 16 (5-19); ASPARTATE AMINO TRANSFERASE 40 U/L (17-59); BILIRUBIN,DIRECT 0.2 mg/dL (0.0-0.4); BILIRUBIN,TOTAL 0.3 mg/dL (0.2-1.3); BLOOD UREA NITROGEN 12 mg/dL (7-20); CALCIUM 9.8 mg/dL (8.4-10.2); CARBON DIOXIDE 29 mmol/L (22-30); CHLORIDE 104 mmol/L (98-107); GLUCOSE 97 mg/dL (75-110); POTASSIUM 3.3 mmol/L (3.6-5.0); SODIUM 148.8 mmol/L (137-145); TOTAL PROTEIN 7.5 g/dL (6.3-8.2)
[2018-08-25 04:31] LABS: ACETAMINOPHEN < 10 ug/mL (10-30)
[2018-08-25 05:00] VITALS: BP 123/70
== END 2018-08-25 05:52 | disposition home or self-care (01) ==
LOC: ER 03:50
DX: F31.9 Bipolar disorder, unspecified (principal); F20.9 Schizophrenia, unspecified; X83.8XXA Intentional self-harm by other specified means, initial encounter; F17.210 Nicotine dependence, cigarettes, uncomplicated; R45.851 Suicidal ideations; Z88.0 Allergy status to penicillin; Z91.013 Allergy to seafood
CPT/HCPCS: 36415; 80053; 80307; 85025; 99284

== ENCOUNTER 2018-09-14 12:24 | Emergency (ER) | payer OTHER | END 2018-09-14 12:30 | disposition left against medical advice (07) | LOC: ER 12:24 | DX: Z53.21 Procedure and treatment not carried out due to patient leaving prior to being seen by health care provider (principal) ==

== ENCOUNTER 2018-09-15 04:23 | Emergency (ER) | payer OTHER ==
[2018-09-15] MEDS ORDERED: LORAZEPAM INJ 2 MG/1 ML VIAL ONE (04:42)
[2018-09-15] MEDS ORDERED: LIDOCAINE 1%/EPINEPHRINE INJ 20 ML VIAL ONE (04:44)
[2018-09-15] MEDS ORDERED: LIDOCAINE 1%/EPINEPHRINE INJ 20 ML VIAL INJ ONE (05:02)
[2018-09-15] MEDS ORDERED: LORAZEPAM INJ 2 MG/1 ML VIAL IV ONE (05:02)
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
[2018-09-15] MEDS: RINGERS SOLUTION,LACTATED 1,000 ML IV PRN ×2 (05:28→07:06)
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
[2018-09-15 05:49] LABS: ALANINE AMINOTRANSFERASE 19 U/L (21-72); ALKALINE PHOSPHATASE 89 U/L (38-126); ASPARTATE AMINO TRANSFERASE 30 U/L (17-59); BILIRUBIN,DIRECT 0.2 mg/dL (0.0-0.4); BILIRUBIN,TOTAL 0.6 mg/dL (0.2-1.3); BLOOD UREA NITROGEN 10 mg/dL (7-20); CALCIUM 10.6 mg/dL (8.4-10.2); CHLORIDE 98 mmol/L (98-107); GLUCOSE 108 mg/dL (75-110); TOTAL PROTEIN 7.9 g/dL (6.3-8.2)
[2018-09-15 05:50] LABS: ACETAMINOPHEN < 10 ug/mL (10-30); ALCOHOL < 10 mg/dL (NONE DETECTED); SALICYLATE < 1.0 mg/dL (2.0-20.0)
[2018-09-15 05:54] LABS: CARBON DIOXIDE 19 mmol/L (22-30); SODIUM 139.5 mmol/L (137-145)
[2018-09-15 05:57] LABS: ABSOLUTE LYMPHOCYTES (AUTO) 0.7 10^3/uL (0.5-4.7); ABSOLUTE MONOCYTES (AUTO) 0.7 10^3/uL (0.1-1.4); ABSOLUTE NEUT (AUTO) 5.9 10^3/uL (1.7-8.2); BASOPHILS % (AUTO) 0.2 % (0-2); HEMATOCRIT 37.5 % (37.9-51.0); LYMPHOCYTES % (AUTO) 9.3 % (13-45); MEAN CORPUSCULAR HEMOGLOBIN 31.4 pg (27.0-33.4); MEAN CORPUSCULAR HGB CONC 34.7 g/dL (32.0-36.0); MEAN CORPUSCULAR VOLUME 90 fl (80-97); MONOCYTES % (AUTO) 9.7 % (3-13); PLATELET COUNT 224 10^3/uL (150-450); RED BLOOD COUNT 4.15 10^6/uL (4.35-5.55); RED CELL DISTRIBUTION WIDTH 14.5 % (11.5-14.0); SEGMENTED NEUTROPHILS % (AUTO) 80.8 % (42-78); TOTAL CELLS COUNTED % (AUTO) 100 %; WHITE BLOOD COUNT 7.3 10^3/uL (4.0-10.5)
[2018-09-15 06:02] LABS: ANION GAP 23 (5-19)
[2018-09-15 06:29] LABS: AMORPHOUS SEDIMENT,URINE TRACE /HPF; APPEARANCE,URINE CLOUDY; BILIRUBIN,URINE NEGATIVE (NEGATIVE); COLOR,URINE AMBER; GLUCOSE, URINE NEGATIVE (NEGATIVE); KETONES,URINE TRACE mg/dL (NEGATIVE); LEUKOCYTE ESTERASE,URINE NEGATIVE (NEGATIVE); NITRITE,URINE NEGATIVE (NEGATIVE); PROTEIN,URINE 100 mg/dL (NEGATIVE)
[2018-09-15] MEDS ORDERED: ONDANSETRON HCL INJ/PF 4 MG/2 ML SDV IV ONE (06:59)
[2018-09-15] MEDS ORDERED: ONDANSETRON HCL INJ/PF 4 MG/2 ML SDV ONE (06:59)
[2018-09-15 07:08] LABS: URINE BARBITURATES SCREEN NEGATIVE; URINE BENZODIAZEPINES SCREEN NEGATIVE; URINE COCAINE SCREEN UNCONFIRMED POSITIVE; URINE MARIJUANA (THC) SCREEN UNCONFIRMED POSITIVE; URINE METHADONE SCREEN NEGATIVE; URINE PHENCYCLIDINE SCREEN NEGATIVE
[2018-09-15] MEDS ORDERED: DIPH/PERTUSS(ACELL)/TETANUS VAC/PF 0.5 ML SYR (>=10YO) IM ONE (07:19)
--- NOTE | 2018-09-15 07:36 | RADIOLOGY REPORT (SQ) ---
EXAM DESCRIPTION: XR CHEST 1 VIEW COMPLETED DATE/TME: 09/15/2018 07:05 CLINICAL HISTORY: 28 years Male, vomiting COMPARISON: None. NUMBER OF VIEWS/TECHNIQUE: 1/AP FINDINGS: Adequate lung volume, clear parenchyma, normal cardiac silhouette, and intact bony thorax. IMPRESSION: No acute cardiopulmonary findings.
--- NOTE | 2018-09-15 09:31 | EKG REPORT ---
SEVERITY:- BORDERLINE ECG - SINUS TACHYCARDIA PROBABLE LEFT ATRIAL ABNORMALITY BORDERLINE T ABNORMALITIES, ANT-LAT LEADS : Confirmed by: Tracy Coley 15-Sep-2018 09:31:02
[2018-09-15 15:03] VITALS: BP 117/97
--- NOTE | 2018-09-15 15:43 | ER Document Report ---
Doctor's Note Notes: 09/15/18 15:42 Patient was signed out to me at shift change. He has slept pretty much the entire shift we tried to wake him up earlier but he was still pretty somnolent. It is 1542 --he is starting to wake up unfortunately is not very pleasant. He is screaming out and carrying on. He is moving all 4 extremities. I spoke with him but he was not very pleasant at this time. He is managing his airway well. His vitals are stable. We have monitored him closely looks like he did not aspirate. He is doing fine I am going to discharge him into the care of the police.
== END 2018-09-15 15:57 ==
LOC: ER 04:23
DX: S51.811A Laceration without foreign body of right forearm, initial encounter (principal); F14.90 Cocaine use, unspecified, uncomplicated; Y35.813A Legal intervention involving manhandling, suspect injured, initial encounter; R45.1 Restlessness and agitation; Z88.0 Allergy status to penicillin; Z91.013 Allergy to seafood
CPT/HCPCS: 93005; 99285; 96361; 51701; 90471; 96374; 96375; 36415; 80307 ×4; 85025; 80053; 81001; 71045; 74150; 90715; 93010; 12002; J2060; J2405; J7120

== ENCOUNTER 2018-09-19 14:57 | Emergency (ER) | payer OTHER, MEDICAID ==
[2018-09-19 15:20] VITALS: BP 113/73
[2018-09-19] MEDS ORDERED: LIDOCAINE 1% INJ (10 MG/ML) 10 ML MDV INJ ONE (15:30)
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
== END 2018-09-19 16:23 | disposition home or self-care (01) ==
LOC: ER 14:57
DX: S61.511D Laceration without foreign body of right wrist, subsequent encounter (principal); X58.XXXD Exposure to other specified factors, subsequent encounter
CPT/HCPCS: 99283